=== PATIENT | male | born 1985 | race Caucasian/White ===

== ENCOUNTER 2020-01-15 17:44 | Emergency (ER) | payer BC ==
[~2020-01-15] VITALS: Ht 177.8 cm; Wt 86.4 kg
[2020-01-15 17:57] VITALS: TEMP 99
[2020-01-15 18:54] VITALS: BP 131/93; PULSE 72
== END 2020-01-15 19:20 | disposition home or self-care (01) ==
LOC: COL.ER 17:44
DX: S20.211A Contusion of right front wall of thorax, initial encounter (principal); F17.210 Nicotine dependence, cigarettes, uncomplicated; W10.9XXA Fall (on) (from) unspecified stairs and steps, initial encounter; Y92.009 Unspecified place in unspecified non-institutional (private) residence as the place of occurrence of the external cause
CPT/HCPCS: A9284